=== PATIENT | male | born 1940 | race Caucasian/White ===

== ENCOUNTER 2021-03-12 18:55 | Emergency (ER) | payer OTHER ==
[~2021-03-12] VITALS: Ht 172.7 cm; Wt 83.0 kg
[2021-03-12] MEDS ORDERED: INSULIN REGULAR, HUMAN 300 UNIT/3 ML VIAL IV ONE ×3 (19:30→21:45)
[2021-03-12] MEDS ORDERED: IV NS 1000 ML 1,000 ML IV ONE ×2 (19:30→20:15)
[2021-03-12] MEDS ORDERED: INSULIN REGULAR, HUMAN 300 UNIT/3 ML VIAL ONE (19:40)
[2021-03-12 19:49] LABS: BASOPHILS % (AUTO) 0.6 % (0.0-2.0); EOSINOPHILS # (AUTO) 0.1 K/uL (0.0-0.7); EOSINOPHILS % (AUTO) 1.1 % (0.0-7.0); HEMATOCRIT 37.4 % (36.7-47.1); HEMOGLOBIN 12.2 g/dL (12.5-16.3); LYMPHOCYTES # (AUTO) 2.3 K/uL (20.0-40.0); LYMPHOCYTES % (AUTO) 32.2 % (20.5-51.5); MEAN CORPUSCULAR HEMOGLOBIN 27.2 uug (23.8-33.4); MEAN CORPUSCULAR HGB CONC 33 g/dL (32.5-36.3); MEAN CORPUSCULAR VOLUME 83.6 fL (73.0-96.2); MONOCYTES # (AUTO) 0.7 K/uL (2.0-10.0); MONOCYTES % (AUTO) 10.2 % (0.0-11.0); NEUTROPHILS % (AUTO) 55.9 % (38.5-71.5); PLATELET COUNT (AUTO) 177 K/uL (152-348); RED BLOOD CELL COUNT(AUTO) 4.48 MIL/uL (4.06-5.63); WHITE BLOOD COUNT (AUTO) 7.2 K/uL (3.6-10.2)
[2021-03-12] MEDS ORDERED: GUAI118L48 PO (19:51)
[2021-03-12] MEDS ORDERED: LOPE2CAP40 PO (19:51)
[2021-03-12] MEDS ORDERED: DULO30CA2 PO (19:51)
[2021-03-12] MEDS ORDERED: DEXT1TAB PO (19:51)
[2021-03-12] MEDS ORDERED: POLY17PO4 PO (19:51)
[2021-03-12] MEDS ORDERED: SIME80TA15 PO (19:51)
[2021-03-12] MEDS ORDERED: DONE10TA44 PO (19:51)
[2021-03-12] MEDS ORDERED: TIOT18CA3 IH (19:51)
[2021-03-12] MEDS ORDERED: ATOR40TA PO (19:51)
[2021-03-12] MEDS ORDERED: CARB-300 PO (19:51)
[2021-03-12] MEDS ORDERED: ASPI81TA31 PO (19:51)
[2021-03-12] MEDS ORDERED: ACET-73 PO (19:51)
[2021-03-12] MEDS ORDERED: HUM10VIA SQ (19:51)
[2021-03-12] MEDS ORDERED: LIDO1ADH43 TP (19:51)
[2021-03-12] MEDS ORDERED: LORA-656 PO (19:51)
[2021-03-12] MEDS ORDERED: METF-442 PO (19:51)
[2021-03-12] MEDS ORDERED: OMEP20TA5 PO (19:51)
[2021-03-12 19:54] LABS: *BILIRUBIN,URIN NEGATIVE (NEGATIVE); *BLOOD, URINE NEGATIVE (NEGATIVE); *CLARITY,URINE CLEAR (CLEAR); *COLOR,URINE YELLOW (YELLOW); *KETONES,URINE NEGATIVE (NEGATIVE); *UROBILINOGEN,URINE 0.2 E.U./dl (NORMAL); LEUKOCYTE ESTERASE ,URINE NEGATIVE (NEGATIVE); NITRITE, URINE NEGATIVE (NEGATIVE); UGLUCOSE 3+ (NEGATIVE)
--- NOTE | 2021-03-12 19:54 | NUR ---
1953 NS 1000ml administered in left forearm 18g.
[2021-03-12 19:58] LABS: CREATININE 1.3 mg/dL (0.6-1.3); POTASSIUM 5.1 mmol/L (3.5-5.1)
--- NOTE | 2021-03-12 20:39 | NUR ---
EKG DONE AT BEDSIDE 2037
--- NOTE | 2021-03-12 20:47 | NUR ---
Repeat accucheck done 540, Dr. Henao made aware.
--- NOTE | 2021-03-12 21:38 | NUR ---
Repeat accucheck noted with 392, Dr. Henao made aware.
[2021-03-12] MEDS ORDERED: IV NORMAL SALINE 1000 ML BAG IV ONE (21:45)
--- NOTE | 2021-03-12 23:05 | NUR ---
Patient discharged to home in stable condition. Written and verbal after care instructions given. Patient verbalizes understanding of instructions. Stressed follow up or return to ER for worsening s/s. Accompanied by mariano Arnold, steady gait, no SOB or labored breathing, afebrile. No c/o FOSTER, n/v, no c/o pain or discmfort. Steady gait.
[2021-03-12 23:07] VITALS: BP 158/76
== END 2021-03-12 23:08 ==
LOC: ER 18:58
DX: E11.65 Type 2 diabetes mellitus with hyperglycemia (principal); E11.42 Type 2 diabetes mellitus with diabetic polyneuropathy; Z79.4 Long term (current) use of insulin; Z95.1 Presence of aortocoronary bypass graft; Z86.73 Personal history of transient ischemic attack (TIA), and cerebral infarction without residual deficits; G20 Parkinson's disease; F02.80 Dementia in other diseases classified elsewhere, unspecified severity, without behavioral disturbance, psychotic disturbance, mood disturbance, and anxiety; Z85.46 Personal history of malignant neoplasm of prostate; Z85.828 Personal history of other malignant neoplasm of skin; E78.5 Hyperlipidemia, unspecified; I25.10 Atherosclerotic heart disease of native coronary artery without angina pectoris; J44.9 Chronic obstructive pulmonary disease, unspecified; K21.9 Gastro-esophageal reflux disease without esophagitis; N40.0 Benign prostatic hyperplasia without lower urinary tract symptoms; Z79.899 Other long term (current) drug therapy
CPT/HCPCS: 36415; 71045; 80048; 81003; 82009; 82962 ×4; 84484; 85025; 93005; 96361; 96374; 96375; 99285; J1815 ×2; 70030-TC; A4663; J7030

== ENCOUNTER 2022-04-13 18:50 | Emergency (ER) | payer OTHER ==
[~2022-04-13] VITALS: Ht 177.8 cm; Wt 83.9 kg
[~2022-04-13 18:50] MED LIST: ACET-73 PO; ASPI81TA31 PO; ATOR40TA PO; CARB-300 PO; DEXT1TAB PO; DONE10TA44 PO; DULO30CA2 PO; GUAI118L48 PO; HUM10VIA SQ; LIDO1ADH43 TP; LOPE2CAP40 PO; LORA-656 PO; METF-442 PO; OMEP20TA5 PO; POLY17PO4 PO; SIME80TA15 PO; TIOT18CA3 IH
--- NOTE | 2022-04-13 19:01 | NUR ---
pt ivy lan from [facility] for possible syncope. pt awake alert but does not know why he is here.
[2022-04-13 19:54] LABS: HEMATOCRIT 35.5 % (36.7-47.1); MEAN CORPUSCULAR HEMOGLOBIN 23.7 uug (23.8-33.4); MEAN CORPUSCULAR VOLUME 74.1 fL (73.0-96.2); PLATELET COUNT (AUTO) 140 K/uL (152-348)
[2022-04-13 19:59] LABS: CARBON DIOXIDE 26 mmol/L (21-32); CHLORIDE 105 mmol/L (98-107); CREATININE 1.4 mg/dL (0.6-1.3); GLUCOSE 196 mg/dL (74-106); UREA NITROGEN, BLOOD 26 mg/dL (7-18)
--- NOTE | 2022-04-13 20:09 | NUR ---
pt went for cat scan of the head.
--- NOTE | 2022-04-13 20:12 | NUR ---
pt returned from cat scan.
[2022-04-13 20:16] LABS: ALANINE AMINOTRANSFERASE 52 U/L (16-63); ALKALINE PHOSPHATASE 61 U/L (50-136); ASPARTATE AMINOTRANSFERASE 31 U/L (15-37); BILIRUBIN,DIRECT 0.2 mg/dL (0.0-0.2); BILIRUBIN,TOTAL 0.7 mg/dL (0.2-1.0); TOTAL PROTEIN, SERUM 7.3 g/dL (6.4-8.2)
[2022-04-13] MEDS ORDERED: MIRT-93 PO (20:23)
[2022-04-13] MEDS ORDERED: FAMO20TA8 PO (20:23)
[2022-04-13] MEDS ORDERED: CHOL400C5 PO (20:23)
[2022-04-13] MEDS ORDERED: MEMA10TA PO (20:23)
[2022-04-13] MEDS ORDERED: CALC600T35 PO (20:23)
[2022-04-13] MEDS ORDERED: CHOL400T15 PO (20:23)
[2022-04-13] MEDS ORDERED: SIME80TA15 PO (20:23)
[2022-04-13] MEDS ORDERED: OMEP20CA15 PO (20:23)
[2022-04-13] MEDS ORDERED: LIDO1ADH43 TP (20:23)
[2022-04-13] MEDS ORDERED: LOPE2CAP40 PO (20:23)
[2022-04-13 20:24] LABS: ETHANOL < 3 MG/DL (0-0)
--- NOTE | 2022-04-13 20:56 | NUR ---
pts derick pantoja called for status update on pt. [phone]. states she will come to see the pt.
--- NOTE | 2022-04-13 22:11 | NUR ---
pt michaelice at bedside.
--- NOTE | 2022-04-13 22:30 | NUR ---
radiology was notifed that pt is ready for CTA.
[2022-04-13] MEDS ORDERED: SWABABLE VALVE TRANSFER SET EA MC ONE (22:40)
[2022-04-13] MEDS ORDERED: IV NORMAL SALINE 250 ML IV ONE (22:40)
[2022-04-13] MEDS ORDERED: IOHEXOL 350 100 ML INFUS..BTL ONE (22:40)
[2022-04-13 22:56] LABS: *AMPHETAMINE, URINE NEGATIVE (NEGATIVE); *CANNABINOID, URINE NEGATIVE (NEGATIVE); *COCCAINE, URINE NEGATIVE (NEGATIVE); *OPIATE, URINE NEGATIVE (NEGATIVE); *PHENCYCLIDINE SCREEN,URINE NEGATIVE (NEGATIVE)
--- NOTE | 2022-04-13 23:07 | NUR ---
pt went to cat scan.
[2022-04-13 23:39] LABS: *BILIRUBIN,URIN NEGATIVE (NEGATIVE); *BLOOD, URINE NEGATIVE (NEGATIVE); *CLARITY,URINE CLEAR (CLEAR); *COLOR,URINE YELLOW (YELLOW); *KETONES,URINE NEGATIVE (NEGATIVE); LEUKOCYTE ESTERASE ,URINE NEGATIVE (NEGATIVE); NITRITE, URINE NEGATIVE (NEGATIVE); UGLUCOSE 2+ (NEGATIVE)
--- NOTE | 2022-04-14 00:26 | NUR ---
received a call from Mark at [facility] she requested an update on vital signs.
[2022-04-14] MEDS ORDERED: ASPIRIN 81 MG TAB.CHEW PO ONE (01:15)
[2022-04-14] MEDS ORDERED: ASPIRIN 81 MG TAB.CHEW ONE (01:18)
--- NOTE | 2022-04-14 02:09 | NUR ---
pt was pulled up on the gourney, he denies pain.
--- NOTE | 2022-04-14 02:12 | NUR ---
Nyla from [facility] called back and says pt will go to [facility] ED dept report number is [phone] the accepting doctor is Dr. Osei eta is 0330 with [facility].
--- NOTE | 2022-04-14 02:14 | NUR ---
I informed the pt that he will go to [facility].
--- NOTE | 2022-04-14 02:19 | NUR ---
called aCtalina the pts derick and left her a message that the pt will go to [facility].
--- NOTE | 2022-04-14 02:43 | NUR ---
report given to Alexa charge attendant nurse at [facility]. [facility] eta bean picker from [facility] is 0330.
--- NOTE | 2022-04-14 03:11 | NUR ---
[facility] here for transport, abdias ramirez and rene here for pt. 153
== END 2022-04-14 03:36 | disposition short-term general hospital (02) ==
LOC: ER 18:51
DX: R55 Syncope and collapse (principal); J44.9 Chronic obstructive pulmonary disease, unspecified; G20 Parkinson's disease; F02.80 Dementia in other diseases classified elsewhere, unspecified severity, without behavioral disturbance, psychotic disturbance, mood disturbance, and anxiety; E78.5 Hyperlipidemia, unspecified; Z86.73 Personal history of transient ischemic attack (TIA), and cerebral infarction without residual deficits; I25.10 Atherosclerotic heart disease of native coronary artery without angina pectoris; Z95.1 Presence of aortocoronary bypass graft; E11.42 Type 2 diabetes mellitus with diabetic polyneuropathy; Z20.822 Contact with and (suspected) exposure to COVID-19; Z85.828 Personal history of other malignant neoplasm of skin; Z85.46 Personal history of malignant neoplasm of prostate; K21.9 Gastro-esophageal reflux disease without esophagitis; Z79.84 Long term (current) use of oral hypoglycemic drugs; Z79.899 Other long term (current) drug therapy; D64.9 Anemia, unspecified; N28.9 Disorder of kidney and ureter, unspecified; R79.1 Abnormal coagulation profile; I44.4 Left anterior fascicular block; J98.11 Atelectasis
CPT/HCPCS: 36415; 70450; 71045; 71275; 80048; 80076; 80307; 80320; 81001; 83605 ×2; 84484; 85025; 85379; 87040 ×2; 87081; 87426; 93005; 99285; Q9967; A4663; G0480

== ENCOUNTER 2022-05-29 12:03 | Emergency (ER) | payer OTHER ==
[~2022-05-29] VITALS: Ht 172.7 cm; Wt 83.9 kg
[~2022-05-29 12:03] MED LIST changes: +CALC600T35 PO; -CARB-300 PO; +CHOL400C5 PO; +CHOL400T15 PO; -DEXT1TAB PO; -DONE10TA44 PO; -DULO30CA2 PO; +FAMO20TA8 PO; -GUAI118L48 PO; +MEMA10TA PO; +MIRT-93 PO; +OMEP20CA15 PO; -OMEP20TA5 PO
--- NOTE | 2022-05-29 12:10 | NUR ---
Patient BIB RA 88 from [facility] for c/o weakness. Patient blood sugar in the field was 372.
--- NOTE | 2022-05-29 12:25 | NUR ---
Dr. Morrow on bedside for MSE.
[2022-05-29] MEDS ORDERED: IV NORMAL SALINE 1000 ML BAG IV ONE (12:30)
[2022-05-29 12:38] LABS: HEMATOCRIT 34.4 % (36.7-47.1); MEAN CORPUSCULAR HEMOGLOBIN 24.2 uug (23.8-33.4); MEAN CORPUSCULAR VOLUME 74.4 fL (73.0-96.2); PLATELET COUNT (AUTO) 168 K/uL (152-348)
[2022-05-29 12:43] LABS: CARBON DIOXIDE 30 mmol/L (21-32); CHLORIDE 103 mmol/L (98-107); CREATININE 1.4 mg/dL (0.6-1.3); POTASSIUM 4.8 mmol/L (3.5-5.1); UREA NITROGEN, BLOOD 28 mg/dL (7-18)
[2022-05-29 12:52] LABS: ALANINE AMINOTRANSFERASE 51 U/L (16-63); ALKALINE PHOSPHATASE 54 U/L (50-136); ASPARTATE AMINOTRANSFERASE 28 U/L (15-37); BILIRUBIN,DIRECT 0.2 mg/dL (0.0-0.2); BILIRUBIN,TOTAL 0.7 mg/dL (0.2-1.0); GLUCOSE 311 mg/dL (74-106); LIPASE 47 U/L (73-393); TOTAL PROTEIN, SERUM 7.2 g/dL (6.4-8.2)
--- NOTE | 2022-05-29 13:12 | NUR ---
Back from CT.
[2022-05-29 13:28] LABS: *BILIRUBIN,URIN NEGATIVE (NEGATIVE); *BLOOD, URINE NEGATIVE (NEGATIVE); *CLARITY,URINE CLEAR (CLEAR); *COLOR,URINE YELLOW (YELLOW); *KETONES,URINE NEGATIVE (NEGATIVE); LEUKOCYTE ESTERASE ,URINE NEGATIVE (NEGATIVE); NITRITE, URINE NEGATIVE (NEGATIVE); PH,URINE 5.5 (5.0-8.0); UGLUCOSE 3+ (NEGATIVE)
[2022-05-29] MEDS ORDERED: INSULIN REGULAR, HUMAN 300 UNIT/3 ML VIAL SQ ONE (14:15)
[2022-05-29] MEDS ORDERED: INSULIN REGULAR, HUMAN 300 UNIT/3 ML VIAL ONE (14:33)
--- NOTE | 2022-05-29 17:05 | NUR ---
[facility] called back and gave transfer info. Patient will be going to [facility], accepting MD is Yakov Lindquist [facility] BLS ETA supervisor carbon paper coating is 1800.
--- NOTE | 2022-05-29 17:18 | NUR ---
Telephone call to [facility] ER charge nurse Rian to give report and requested for this nurse to call back in 20 minutes.
--- NOTE | 2022-05-29 17:24 | NUR ---
telephone call to patient mariano Bishop and obtain verbal consent to transfer patient to [facility].
--- NOTE | 2022-05-29 17:51 | NUR ---
Telephone call to [facility], to give report, this nurse was put on hold for more than 10 mins.Will try to call again later.
--- NOTE | 2022-05-29 18:00 | NUR ---
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 Telephone call to [facility] and gave requested report to Jayde.
== END 2022-05-29 18:00 | disposition short-term general hospital (02) ==
LOC: ER 12:03
DX: E11.65 Type 2 diabetes mellitus with hyperglycemia (principal); Z79.4 Long term (current) use of insulin; Z79.84 Long term (current) use of oral hypoglycemic drugs; G20 Parkinson's disease; F02.80 Dementia in other diseases classified elsewhere, unspecified severity, without behavioral disturbance, psychotic disturbance, mood disturbance, and anxiety; J44.9 Chronic obstructive pulmonary disease, unspecified; E11.42 Type 2 diabetes mellitus with diabetic polyneuropathy; I25.10 Atherosclerotic heart disease of native coronary artery without angina pectoris; Z95.1 Presence of aortocoronary bypass graft; E78.5 Hyperlipidemia, unspecified; Z85.828 Personal history of other malignant neoplasm of skin; Z85.46 Personal history of malignant neoplasm of prostate; F32.A Depression, unspecified; Z79.899 Other long term (current) drug therapy; Z79.82 Long term (current) use of aspirin; I44.7 Left bundle-branch block, unspecified; Z20.822 Contact with and (suspected) exposure to COVID-19
CPT/HCPCS: 99285; 96360; 70450; 71045; 87426; 80076; 80048; 81003; 82009; 82962 ×2; 83690; 85025; 87086; 84484; 36415; 83605; 87081; 96372; J1815; J7040; A4663

== ENCOUNTER 2022-06-17 20:56 | Emergency (ER) | payer OTHER ==
[~2022-06-17] VITALS: Ht 172.7 cm; Wt 77.1 kg
[2022-06-17] MEDS ORDERED: ONDANSETRON ODT 4 MG TAB.RAPDIS SL ONE (21:30)
[2022-06-17] MEDS ORDERED: HYDROMORPHONE 1 MG/1 ML DISP.SYRIN IM ONE (21:30)
[2022-06-17] MEDS ORDERED: ONDANSETRON ODT 4 MG TAB.RAPDIS ONE (21:35)
[2022-06-17] MEDS ORDERED: HYDROMORPHONE 1 MG/1 ML DISP.SYRIN ONE (21:36)
[2022-06-17 21:57] LABS: HEMATOCRIT 35.6 % (36.7-47.1); MEAN CORPUSCULAR HEMOGLOBIN 23.8 uug (23.8-33.4); MEAN CORPUSCULAR VOLUME 74.7 fL (73.0-96.2); PLATELET COUNT (AUTO) 175 K/uL (152-348)
[2022-06-17 22:30] LABS: ALANINE AMINOTRANSFERASE 57 U/L (16-63); ALKALINE PHOSPHATASE 52 U/L (50-136); ASPARTATE AMINOTRANSFERASE 48 U/L (15-37); BILIRUBIN,DIRECT 0.2 mg/dL (0.0-0.2); BILIRUBIN,TOTAL 0.8 mg/dL (0.2-1.0); CARBON DIOXIDE 25 mmol/L (21-32); CHLORIDE 103 mmol/L (98-107); CREATININE 1.5 mg/dL (0.6-1.3); GLUCOSE 238 mg/dL (74-106); POTASSIUM 4.2 mmol/L (3.5-5.1); TOTAL PROTEIN, SERUM 7.2 g/dL (6.4-8.2); UREA NITROGEN, BLOOD 24 mg/dL (7-18)
--- NOTE | 2022-06-17 23:14 | NUR ---
pt transported to CT
[2022-06-18] MEDS ORDERED: diphenhydrAMINE 50 MG/1 ML VIAL ONE (00:19)
[2022-06-18] MEDS ORDERED: methylPREDNISolone SOD SUCC 125 MG/2 ML VIAL ONE (00:20)
[2022-06-18] MEDS ORDERED: IV NORMAL SALINE 1000 ML BAG IV ONE ×2 (00:30)
[2022-06-18] MEDS ORDERED: methylPREDNISolone SOD SUCC 125 MG/2 ML VIAL IV ONE (00:30)
[2022-06-18] MEDS ORDERED: diphenhydrAMINE 50 MG/1 ML VIAL IV ONE (00:30)
[2022-06-18] MEDS ORDERED: SWABABLE VALVE TRANSFER SET EA MC ONE (00:39)
[2022-06-18] MEDS ORDERED: IOHEXOL 350 100 ML INFUS..BTL ONE (00:39)
[2022-06-18] MEDS ORDERED: IV NORMAL SALINE 250 ML IV ONE (00:39)
[2022-06-18] MEDS ORDERED: HYDROMORPHONE 1 MG/1 ML DISP.SYRIN IV ONE (01:15)
--- NOTE | 2022-06-18 01:16 | NUR ---
Pt returned from CT for CT angio, pt was pre-medicated with IVP benadryl, solumedrol and IVF prior to scan. Pt tolerated well, no s/s of reaction to contrast. Pt connected to all monitoring equipment, on 2L NC per MD orders. Awaiting results. No s/s of acute distress noted.
[2022-06-18] MEDS ORDERED: HYDROMORPHONE 1 MG/1 ML DISP.SYRIN ONE (01:34)
--- NOTE | 2022-06-18 03:29 | NUR ---
Pt to be transfered to [facility]. Report given to Lilliana HILL and made aware of pt's arrival. Informed RN that pt's transport from [facility] is 0400.
--- NOTE | 2022-06-18 04:33 | NUR ---
Report given to [facility].
== END 2022-06-18 04:58 | disposition short-term general hospital (02) ==
LOC: ER 20:57
DX: R55 Syncope and collapse (principal); S20.211A Contusion of right front wall of thorax, initial encounter; W06.XXXA Fall from bed, initial encounter; Y92.099 Unspecified place in other non-institutional residence as the place of occurrence of the external cause; R94.31 Abnormal electrocardiogram [ECG] [EKG]; E11.65 Type 2 diabetes mellitus with hyperglycemia; N28.9 Disorder of kidney and ureter, unspecified; R79.1 Abnormal coagulation profile; G20 Parkinson's disease; F02.80 Dementia in other diseases classified elsewhere, unspecified severity, without behavioral disturbance, psychotic disturbance, mood disturbance, and anxiety; J44.9 Chronic obstructive pulmonary disease, unspecified; E11.42 Type 2 diabetes mellitus with diabetic polyneuropathy; Z95.1 Presence of aortocoronary bypass graft; G47.30 Sleep apnea, unspecified; E78.5 Hyperlipidemia, unspecified; Z86.73 Personal history of transient ischemic attack (TIA), and cerebral infarction without residual deficits; I25.10 Atherosclerotic heart disease of native coronary artery without angina pectoris; Z79.82 Long term (current) use of aspirin; Z79.899 Other long term (current) drug therapy; K21.9 Gastro-esophageal reflux disease without esophagitis; Z85.828 Personal history of other malignant neoplasm of skin; Z20.822 Contact with and (suspected) exposure to COVID-19
CPT/HCPCS: 99285; 70450; 87426; 80076; 80048; 83880; 85025; 85379; 84484 ×2; 36415; 93005; 71101; 96372; 96374; 71275; 96361; 96375; J1170 ×2; J1200; J2930; Q9967; J7040; Q0162

== ENCOUNTER 2022-06-20 14:42 | Emergency (ER) | payer OTHER ==
[~2022-06-20] VITALS: Ht 172.7 cm; Wt 77.1 kg
--- NOTE | 2022-06-20 14:45 | NUR ---
Patient seen by
[2022-06-20] MEDS: VANCOMYCIN IV 1,000 MG in IV DEXTROSE 5% 250 ML IV ONE ×2 (15:00→16:00)
[2022-06-20] MEDS ORDERED: IV NORMAL SALINE 1000 ML BAG IV ONE ×2 (15:00→17:15)
[2022-06-20] MEDS ORDERED: CEFTRIAXONE 1 G in IV DEXTROSE 5% 50 ML IV ONE (15:00)
[2022-06-20] MEDS ORDERED: DEXAMETHASONE SOD PHOSPHATE 4 MG INJ IV ONE (15:00)
[2022-06-20 15:16] LABS: HEMATOCRIT 36.7 % (36.7-47.1); MEAN CORPUSCULAR HEMOGLOBIN 23.7 uug (23.8-33.4); MEAN CORPUSCULAR VOLUME 73.7 fL (73.0-96.2); PLATELET COUNT (AUTO) 165 K/uL (152-348)
[2022-06-20 15:30] LABS: ALANINE AMINOTRANSFERASE 39 U/L (16-63); ALKALINE PHOSPHATASE 58 U/L (50-136); ASPARTATE AMINOTRANSFERASE 19 U/L (15-37); BILIRUBIN,DIRECT 0.3 mg/dL (0.0-0.2); BILIRUBIN,TOTAL 1.1 mg/dL (0.2-1.0); CARBON DIOXIDE 30 mmol/L (21-32); CHLORIDE 102 mmol/L (98-107); CREATININE 1.4 mg/dL (0.6-1.3); GLUCOSE 79 mg/dL (74-106); POTASSIUM 3.8 mmol/L (3.5-5.1); TOTAL PROTEIN, SERUM 7.4 g/dL (6.4-8.2); UREA NITROGEN, BLOOD 26 mg/dL (7-18)
[2022-06-20] MEDS ORDERED: DEXAMETHASONE SOD PHOSPHATE 10 MG INJ ONE (15:30)
[2022-06-20] MEDS ORDERED: VANCOMYCIN IV 200 ML ONE (15:30)
[2022-06-20] MEDS ORDERED: CEFTRIAXONE /D5W 50ML IVPB **ER PYXIS IV ONE (15:30)
[2022-06-20 15:34] LABS: *BILIRUBIN,URIN 1+ (NEGATIVE); *BLOOD, URINE NEGATIVE (NEGATIVE); *CLARITY,URINE CLEAR (CLEAR); *COLOR,URINE YELLOW (YELLOW); *KETONES,URINE NEGATIVE (NEGATIVE); LEUKOCYTE ESTERASE ,URINE NEGATIVE (NEGATIVE); NITRITE, URINE NEGATIVE (NEGATIVE); UGLUCOSE NEGATIVE (NEGATIVE)
[2022-06-20] MEDS ORDERED: diphenhydrAMINE 50 MG/1 ML VIAL ONE (15:39)
[2022-06-20] MEDS ORDERED: diphenhydrAMINE 50 MG/1 ML VIAL IV ONE (15:45)
--- NOTE | 2022-06-20 16:26 | NUR ---
SBP 186/98 hr 80 rr 18 .
[2022-06-20] MEDS ORDERED: hydrALAZINE HCL 20 MG/1 ML VIAL ONE ×2 (16:29)
[2022-06-20 16:30] VITALS: BP 186/98
[2022-06-20] MEDS ORDERED: hydrALAZINE HCL 20 MG/1 ML VIAL IV ONE (16:30)
--- NOTE | 2022-06-20 16:31 | NUR ---
clinical report given to Garry Shine from intake. as stated " will call with update on admission".
--- NOTE | 2022-06-20 16:31 | NUR ---
hydralazine adminitered. for sbp of 186/98 hr of 80 saturation 96% on RA.
--- NOTE | 2022-06-20 16:47 | NUR ---
SARAH Pérez on the phone with Dr. Sousa and after this telephone update Pamela garay was called and [facility] and spoke with nurse Nadege who also gave him report on pt's condition and informed him that they were unable to contact SARAH Pérez to report changes in condition .
--- NOTE | 2022-06-20 16:50 | NUR ---
Lab with reports of lactic acid of 2.7
--- NOTE | 2022-06-20 17:39 | NUR ---
A call from intake admission Erma Castañeda with information to transfer pt. As stated by Erma pt. will be going to [facility] department to call and give report poultry picker time will be [phone].
--- NOTE | 2022-06-20 18:00 | NUR ---
Report given to Garry [facility]IS[facility] emergency department. Admitting physician will be Dr. Marquez.
--- NOTE | 2022-06-20 18:17 | NUR ---
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
--- NOTE | 2022-06-20 18:22 | NUR ---
Mays emptied with a total of 1900cc of clear patt urine out.
--- NOTE | 2022-06-20 19:05 | NUR ---
KP transfer in the unit report given to Lian. patient taken via ambulance. AAOx4 HR of 83 139/75. RR 17, saturation of 95% on RA. Addendum: 06/20/22 at 1907 by GMATEOS Patient left with troy to gravity, RFA G20 patent.
== END 2022-06-20 19:17 | disposition short-term general hospital (02) ==
LOC: ER 14:44
DX: R07.81 Pleurodynia (principal); S20.211A Contusion of right front wall of thorax, initial encounter; W19.XXXA Unspecified fall, initial encounter; Y92.099 Unspecified place in other non-institutional residence as the place of occurrence of the external cause; E87.2 Acidosis; Z20.822 Contact with and (suspected) exposure to COVID-19; N28.9 Disorder of kidney and ureter, unspecified; G20 Parkinson's disease; E78.5 Hyperlipidemia, unspecified; J44.9 Chronic obstructive pulmonary disease, unspecified; Z86.73 Personal history of transient ischemic attack (TIA), and cerebral infarction without residual deficits; Z95.1 Presence of aortocoronary bypass graft; E11.42 Type 2 diabetes mellitus with diabetic polyneuropathy; F02.80 Dementia in other diseases classified elsewhere, unspecified severity, without behavioral disturbance, psychotic disturbance, mood disturbance, and anxiety; K21.9 Gastro-esophageal reflux disease without esophagitis; Z85.46 Personal history of malignant neoplasm of prostate; Z85.828 Personal history of other malignant neoplasm of skin; Z91.041 Radiographic dye allergy status; Z79.4 Long term (current) use of insulin; Z79.84 Long term (current) use of oral hypoglycemic drugs; Z79.899 Other long term (current) drug therapy
CPT/HCPCS: 99285; 96365; 96375; 71045; 87426; 80076; 80048; 81003; 85025; 84145; 85730; 87040 ×2; 87086; 84484; 36415; 93005; 83605 ×2; J0696; J1100; J1200; J0360 ×2; J3370; J7040; A4663

== ENCOUNTER 2022-10-08 16:51 | Emergency (ER) | payer OTHER ==
[~2022-10-08] VITALS: Ht 172.7 cm; Wt 83.0 kg
[~2022-10-08 16:51] MED LIST changes: -CHOL400C5 PO
[2022-10-08] MEDS ORDERED: MUPI22OI2 TP (17:19)
[2022-10-08] MEDS ORDERED: BUPR300T52 PO (17:19)
[2022-10-08] MEDS ORDERED: NPH,100V SQ (17:19)
[2022-10-08] MEDS ORDERED: DEXT1TAB PO (17:19)
[2022-10-08] MEDS ORDERED: [UNRECOGNIZED DRUG - CODE] PO (17:19)
--- NOTE | 2022-10-08 17:41 | NUR ---
PT IS IN ROOM #1B. DR ORTIZ EVALUATED THE PT.
[2022-10-08 17:43] LABS: HEMATOCRIT 35.6 % (36.7-47.1); MEAN CORPUSCULAR HEMOGLOBIN 23.5 uug (23.8-33.4); MEAN CORPUSCULAR VOLUME 73.8 fL (73.0-96.2); PLATELET COUNT (AUTO) 212 K/uL (152-348)
[2022-10-08 18:10] LABS: CARBON DIOXIDE 26 mmol/L (21-32); CHLORIDE 100 mmol/L (98-107); CREATININE 1.5 mg/dL (0.6-1.3); GLUCOSE 256 mg/dL (74-106); UREA NITROGEN, BLOOD 23 mg/dL (7-18)
[2022-10-08 19:21] LABS: EOSINOPHILS % (MANUAL) 4 % (0-8); LYMPHOCYTES % (MANUAL) 32 % (20-40); MONOCYTES % (MANUAL) 7 % (2-10); NEUTROPHILS % (MANUAL) 57 % (42-75)
--- NOTE | 2022-10-08 19:40 | NUR ---
Pt. in bed, laying down. VSS at this time.
--- NOTE | 2022-10-08 20:41 | NUR ---
collected MRSA and COVID test, sent to lab Pt. wanted to get out of bed, assisted to sit outside bedroom. Pt is now currently sitting by the station.
--- NOTE | 2022-10-08 21:37 | NUR ---
Dr. Falcon ordered to d/c patient. Called [facility] and [facility] to let them know patient's ETA will be 70-90 mins. from now. Pt. in bed.
[2022-10-08 22:37] VITALS: BP 118/80
--- NOTE | 2022-10-08 22:37 | NUR ---
Patient discharged to home in stable condition. Written and verbal after care instructions given. Patient verbalizes understanding of instructions. Stressed follow up or return to ER for worsening s/s.
== END 2022-10-08 22:37 ==
LOC: ER 16:51
DX: R42 Dizziness and giddiness (principal); E11.65 Type 2 diabetes mellitus with hyperglycemia; Z79.4 Long term (current) use of insulin; Z79.84 Long term (current) use of oral hypoglycemic drugs; E11.22 Type 2 diabetes mellitus with diabetic chronic kidney disease; I13.0 Hypertensive heart and chronic kidney disease with heart failure and stage 1 through stage 4 chronic kidney disease, or unspecified chronic kidney disease; N18.9 Chronic kidney disease, unspecified; I50.9 Heart failure, unspecified; E11.42 Type 2 diabetes mellitus with diabetic polyneuropathy; Z95.1 Presence of aortocoronary bypass graft; G20 Parkinson's disease; Z20.822 Contact with and (suspected) exposure to COVID-19; F02.80 Dementia in other diseases classified elsewhere, unspecified severity, without behavioral disturbance, psychotic disturbance, mood disturbance, and anxiety; Z85.828 Personal history of other malignant neoplasm of skin; Z85.46 Personal history of malignant neoplasm of prostate; K21.9 Gastro-esophageal reflux disease without esophagitis; I25.10 Atherosclerotic heart disease of native coronary artery without angina pectoris; E78.5 Hyperlipidemia, unspecified; Z86.73 Personal history of transient ischemic attack (TIA), and cerebral infarction without residual deficits; J44.9 Chronic obstructive pulmonary disease, unspecified; Z79.899 Other long term (current) drug therapy; Z91.81 History of falling; Z79.82 Long term (current) use of aspirin; I44.7 Left bundle-branch block, unspecified
CPT/HCPCS: 36415; 70030-TC; 70450; 71045; 73030; 84484; 85025; 93005; A4663

== ENCOUNTER 2022-10-23 19:39 | Emergency (ER) | END 2022-10-24 00:59 | disposition home or self-care (01) | DX: S70.01XA Contusion of right hip, initial encounter (principal); W18.30XA Fall on same level, unspecified, initial encounter; Y92.099 Unspecified place in other non-institutional residence as the place of occurrence of the external cause; F09 Unspecified mental disorder due to known physiological condition; E53.8 Deficiency of other specified B group vitamins; E11.65 Type 2 diabetes mellitus with hyperglycemia; I44.0 Atrioventricular block, first degree; R94.31 Abnormal electrocardiogram [ECG] [EKG]; D64.9 Anemia, unspecified; Z79.84 Long term (current) use of oral hypoglycemic drugs; Z79.82 Long term (current) use of aspirin; Z79.899 Other long term (current) drug therapy; Z79.4 Long term (current) use of insulin; Z95.1 Presence of aortocoronary bypass graft; J44.9 Chronic obstructive pulmonary disease, unspecified; I25.10 Atherosclerotic heart disease of native coronary artery without angina pectoris; E11.42 Type 2 diabetes mellitus with diabetic polyneuropathy; K21.9 Gastro-esophageal reflux disease without esophagitis; Z85.828 Personal history of other malignant neoplasm of skin; Z91.041 Radiographic dye allergy status; E78.5 Hyperlipidemia, unspecified; G20 Parkinson's disease; F02.80 Dementia in other diseases classified elsewhere, unspecified severity, without behavioral disturbance, psychotic disturbance, mood disturbance, and anxiety | CPT/HCPCS: 99285; 96360; 71045; 96361; 80076; 80048; 81003; 82009; 82550; 82607; 82962; 83735; 85025; 85730; 84484; 36415; 93005; 73502; 83605 ×2; 96372; J3420; J7040 ==

== ENCOUNTER 2022-10-24 03:52 | Emergency (ER) | END 2022-10-24 07:27 | disposition short-term general hospital (02) | DX: S70.01XA Contusion of right hip, initial encounter (principal); W18.30XA Fall on same level, unspecified, initial encounter; Y92.099 Unspecified place in other non-institutional residence as the place of occurrence of the external cause; E11.65 Type 2 diabetes mellitus with hyperglycemia; Z79.4 Long term (current) use of insulin; Z79.84 Long term (current) use of oral hypoglycemic drugs; G20 Parkinson's disease; F02.80 Dementia in other diseases classified elsewhere, unspecified severity, without behavioral disturbance, psychotic disturbance, mood disturbance, and anxiety; Z86.73 Personal history of transient ischemic attack (TIA), and cerebral infarction without residual deficits; R29.6 Repeated falls; R94.31 Abnormal electrocardiogram [ECG] [EKG]; D64.9 Anemia, unspecified; J44.9 Chronic obstructive pulmonary disease, unspecified; I25.10 Atherosclerotic heart disease of native coronary artery without angina pectoris; Z95.1 Presence of aortocoronary bypass graft; E78.5 Hyperlipidemia, unspecified; Z85.46 Personal history of malignant neoplasm of prostate; E11.42 Type 2 diabetes mellitus with diabetic polyneuropathy; F32.A Depression, unspecified; Z20.822 Contact with and (suspected) exposure to COVID-19; N28.9 Disorder of kidney and ureter, unspecified; Z79.899 Other long term (current) drug therapy; Z91.041 Radiographic dye allergy status; Z79.82 Long term (current) use of aspirin ==